=== PATIENT | female | born 2000 | race Two or more races ===

== ENCOUNTER → 2023-12-03 | Emergency (ER) | payer OTHER ==
[~2023-12-03] VITALS: Ht 162.6 cm; Wt 97.5 kg
[2023-12-03 22:27] VITALS: BP 125/84; O2SAT 99
== END | disposition home or self-care (01) ==
LOC: ER 21:59
DX: R10.2 Pelvic and perineal pain (principal)

== ENCOUNTER 2024-02-05 16:53 | Emergency (ER) | payer OTHER ==
[~2024-02-05] VITALS: Ht 160 cm; Wt 100.7 kg
[2024-02-05] MEDS ORDERED: METHYLPREDNISOLONE SOD SUCC 125 MG VIAL IV ONE (18:00)
[2024-02-05] MEDS ORDERED: HYDROCODONE/CHLORPHEN P-STIREX 5 ML ML PO ONE (18:00)
[2024-02-05] MEDS ORDERED: AZITHROMYCIN 500 MG TABLET PO ONE (18:00)
[2024-02-05] MEDS ORDERED: IPRATROPIUM/ALBUTEROL SULFATE 3 ML AMPUL.NEB IH SCH (18:00)
[2024-02-05 18:32] LABS: HEMATOCRIT 38.8 % (36.0-45.00); HEMOGLOBIN 13.4 g/dL (12.0-15.00); MEAN CELL VOLUME 82.3 fL (80.00-100.00); MEAN CORPUSCULAR HEMOGLOBIN 28.3 pg (27.00-32.0); MEAN CORPUSCULAR HGB CONC 34.4 g/dl (32.0-36.0); PLATELET COUNT 308 K/uL (150-450); RED BLOOD COUNT 4.71 M/uL (4.00-6.00); RED CELL DISTRIBUTION WIDTH 13.6 % (11.5-14.5)
[2024-02-05 19:12] LABS: ALBUMIN 3.5 gm/dL (3.4-5.0); BILIRUBIN TOTAL 0.96 mg/dL (0.3-1.2); CALCIUM 9.3 mg/dL (8.5-10.1); CREATININE SERUM 0.94 mg/dL (0.55-1.02); GFR 73.16; GLOBULINA 4.8 G/DL (2.4-3.5); POTASSIUM 4.48 mEq/L (3.5-5.1); TOTAL PROTEIN 8.3 gm/dL (6.4-8.2)
[2024-02-05] MEDS ORDERED: IPRAT-ALBUT 0.5-3 ML IH (20:42)
[2024-02-05] MEDS ORDERED: ZITHROMAX500 MG PO (20:42)
[2024-02-05] MEDS ORDERED: TUSNEL LIQUID178 ML PO (20:42)
== END 2024-02-05 20:43 | disposition home or self-care (01) ==
LOC: ER 16:55
PROVIDERS: General Practice
DX: R53.81 Other malaise (principal); J06.9 Acute upper respiratory infection, unspecified; Z20.822 Contact with and (suspected) exposure to COVID-19

== ENCOUNTER 2024-11-29 09:51 | Emergency (ER) | payer OTHER ==
[~2024-11-29] VITALS: Ht 160 cm; Wt 99.8 kg
[~2024-11-29 09:51] MED LIST: IPRAT-ALBUT 0.5-3 ML IH; TUSNEL LIQUID178 ML PO; ZITHROMAX500 MG PO
[2024-11-29 13:37] LABS: BASO % 0.3 % (0.1-1.2); EOS # 0.08 (0.04-0.54); EOS % 0.9 % (0.7-7.0); LYMPH # 2.60 (1.18-3.74); LYMPH % 30.0 % (19.3-53.1); MEAN PLATELET VOLUME 8.30 fl (9.4-12.4); MONO # 0.29 (0.24-0.82); MONO % 3.3 % (4.7-12.5); NEUT # 5.65 (1.56-6.13); NEUT % 65.4 % (34.0-71.1); RED CELL DISTRIBUTION WIDTH 12.6 % (11.6-14.4)
[2024-11-29 13:41] LABS: INR 1.04
[2024-11-29 14:10] LABS: BUN CREA RATIO 13.0 (7.0-25.0); CREATININE SERUM 0.64 mg/dL (0.55-1.02); GFR 113.06; GLUCOSE FASTING 84.0 mg/dL (65-100); HCG QUANTITATIVE 16.0 mUI/mL (1-3); OSMOLALITY SERUM 279.0 MOSM/KG (275-295)
[2024-11-29 14:26] LABS: URINE APPEARANCE Cloudy; URINE BILIRRUBIN Negative (NEGATIVE); URINE BLOOD Large; URINE COLOR Yellow; URINE GLUCOSE Negative (NEGATIVE); URINE KETONE Negative (NEGATIVE); URINE LEUKOCYTE Moderate; URINE NITRATE Negative; URINE PROTEIN 30 (NEGATIVE); URINE UROBILINOGEN 0.2 E.U./dl
[2024-11-29 14:29] LABS: URINE BACTERIA 7474.7 uL (0.0-1933); URINE EPITHELIAL CELLS 56.1 uL (0.0-38.8); URINE RBC 12.6 uL (0.0-20.8); URINE WBC 481.0 uL (0.0-23.2)
[2024-11-29 15:49] LABS: URINE CAST 0.14 uL (0.0-1.40)
== END 2024-11-29 16:51 | disposition home or self-care (01) ==
LOC: ER 09:52
PROVIDERS: General Practice
DX: O03.9 Complete or unspecified spontaneous abortion without complication (principal); Z3A.01 Less than 8 weeks gestation of pregnancy

== ENCOUNTER → 2025-01-29 | Emergency (ER) | payer OTHER ==
[~2025-01-29] VITALS: Ht 160 cm; Wt 97.5 kg
[~2025-01-29] MED LIST changes: +CEFTRIAXONE SODIUM 1,000 MG VIAL IV STA; +CEFTRIAXONE SODIUM 1,000 MG VIAL ONE
[2025-01-29 13:07] LABS: BASO % 0.4 % (0.1-1.2); EOS # 0.23 (0.04-0.54); EOS % 2.5 % (0.7-7.0); LYMPH # 2.20 (1.18-3.74); LYMPH % 23.7 % (19.3-53.1); MEAN PLATELET VOLUME 8.40 fl (9.4-12.4); MONO # 0.34 (0.24-0.82); MONO % 3.7 % (4.7-12.5); NEUT # 6.45 (1.56-6.13); NEUT % 69.5 % (34.0-71.1); RED CELL DISTRIBUTION WIDTH 13.5 % (11.6-14.4)
[2025-01-29 14:18] LABS: ALT/SGPT 24.0 U/L (12-78); AST/SGOT 19.0 U/L (15-37); BILIRUBIN TOTAL 0.96 mg/dL (0.3-1.2); BUN CREA RATIO 8.0 (7.0-25.0); CREATININE SERUM 0.6 mg/dL (0.55-1.02); GFR 121.8; GLOBULINA 3.7 G/DL (2.4-3.5); GLUCOSE FASTING 92.0 mg/dL (65-100); OSMOLALITY SERUM 278.0 MOSM/KG (275-295)
[2025-01-29 14:19] LABS: HCG QUANTITATIVE 1063.0 mUI/mL (1-3)
[2025-01-29 14:24] LABS: URINE APPEARANCE Turbid; URINE BILIRRUBIN Negative (NEGATIVE); URINE BLOOD NHT; URINE COLOR Yellow; URINE GLUCOSE Negative (NEGATIVE); URINE KETONE Negative (NEGATIVE); URINE LEUKOCYTE Large; URINE NITRATE Positive; URINE PROTEIN Trace (NEGATIVE); URINE UROBILINOGEN 0.2 E.U./dl
[2025-01-29 14:28] LABS: URINE CAST 3.82 uL (0.0-1.40); URINE RBC 3.5 uL (0.0-20.8); URINE WBC 433.1 uL (0.0-23.2)
[2025-01-29 14:39] LABS: URINE BACTERIA > 9821.5 uL (0.0-1933); URINE EPITHELIAL CELLS > 201.7 uL (0.0-38.8)
[2025-01-29 14:40] LABS: TYPE CELLS SQUAMOUS
== END | disposition home or self-care (01) ==
LOC: ER 10:07
PROVIDERS: General Practice
DX: N91.2 Amenorrhea, unspecified (principal); N39.0 Urinary tract infection, site not specified